=== PATIENT | female | born 1990 | race Caucasian/White ===

== ENCOUNTER 2019-03-12 19:47 | Emergency (ER) | payer OTHER ==
[~2019-03-12] VITALS: Ht 157.5 cm; Wt 81.6 kg
[2019-03-12 20:23] VITALS: BP 154/91
== END 2019-03-12 22:05 | disposition left against medical advice (07) ==
LOC: ER 19:54
DX: M54.5 Low back pain (principal); Z53.21 Procedure and treatment not carried out due to patient leaving prior to being seen by health care provider